=== PATIENT | male | born 1980 | race Caucasian/White ===

== ENCOUNTER 2017-12-31 14:15 | Emergency (ER) | payer OTHER ==
[~2017-12-31] VITALS: Ht 172.7 cm; Wt 68.0 kg
[~2017-12-31 14:15] MED LIST: CEPHALEXIN500 M1 PO; PREDNISONE20 M1 PO
[2017-12-31] MEDS ORDERED: PREDNISONE20 M1 PO (14:29)
== END 2017-12-31 14:56 | disposition home or self-care (01) ==
LOC: ED 14:15
DX: L25.9 Unspecified contact dermatitis, unspecified cause (principal); F17.200 Nicotine dependence, unspecified, uncomplicated

== ENCOUNTER 2018-03-18 03:58 | Emergency (ER) | payer OTHER ==
[~2018-03-18] VITALS: Ht 172.7 cm; Wt 72.6 kg
== END 2018-03-18 05:19 | disposition home or self-care (01) ==
LOC: ED 03:58
DX: S90.31XA Contusion of right foot, initial encounter (principal); Z79.899 Other long term (current) drug therapy; W22.09XA Striking against other stationary object, initial encounter; Y93.89 Activity, other specified; Y92.89 Other specified places as the place of occurrence of the external cause; Y99.8 Other external cause status

== ENCOUNTER 2022-01-26 22:32 | Emergency (ER) | payer OTHER ==
[~2022-01-26] VITALS: Ht 172.7 cm; Wt 72.6 kg
[2022-01-26] MEDS ORDERED: SEPTDS PO (23:28)
[2022-01-26] MEDS ORDERED: PREDNISONE50 MG PO (23:28)
== END 2022-01-26 23:37 | disposition home or self-care (01) ==
LOC: ED 22:32
DX: L23.7 Allergic contact dermatitis due to plants, except food (principal); A49.9 Bacterial infection, unspecified